=== PATIENT | male | born 1995 | race Asian ===

== ENCOUNTER 2025-04-04 14:33 | Emergency (ER) | payer OTHER, SELFPAY ==
[2025-04-04 15:11] VITALS: BP 131/59; PULSE 99; RESP 18; TEMP 39.4; O2SAT 99; BMI 30.5
--- NOTE | 2025-04-04 15:21 | EDNOTE_ITS ---
ED Fever RME/HPI General Chief Complaint: Fever Stated Complaint: Fever, sore throat X 2 days, fatigue Time Seen by Provider: 04/04/25 15:08 Arrival date/time: 04/04/25 14:33 This is a 30-year-old male comes into the emergency room with complaints of fever, sore throat, and fatigue for the past 2 days. Patient denies any past medical history. Patient is not from here and just came to visit family. Patient is going back to [place] tomorrow Related Data Previous Rx's ?Medication ?Instructions ?Recorded acetaminophen 500 mg tablet 1,000 mg (2 x 500 mg) PO Q ID PRN 04/04/25 fever or pain #30 tabs ibuprofen 800 mg tablet 800 mg PO Q6H PRN pain #20 t abs 04/04/25 Allergies Allergy/AdvReac Type Severity Reaction Status Date / Time No Known Drug Allergies Allergy Verified 04/04/25 14:37 Review of Systems Review of Systems Systems Reviewed: All systems reviewed, normal except as documented Past Medical History Past Medical History Comments PMH COMMENT: none reported Physical Exam Narrative Physical exam: VITAL SIGNS: Reviewed. GENERAL APPEARANCE: Alert and interactive, follows commands, no acute distress, HEAD AND FACE: Non-traumatic. ENT: PERRL, conjuctiva pink and clear, eyelid no trauma, Mucous membrane moist. posterior pharyx erythemic, tonsils swollen, uvula at midline NECK: Supple, nontender, no nuchal rigidity. CHEST: No tenderness, no crepitus, no paradoxical movement, no retractions. LUNGS: Clear, well ventilated, symmetric, no rales, no wheezing, no rhonchi, no stridor, good breath sounds bilaterally. HEART: Regular rate, regular rhythm, no murmur, no gallops. ABDOMEN: Soft, nondistended, no guarding, nontender, no rebound, no masses, NEUROLOGICAL: Gross motor function intact sensory function intact, Appropriate for age. MUSCULOSKELETAL: low back nontender, full range of motion. EXTREMITIES: No redness no swelling no skin breakdown on bilateral foot and leg. Distal neurovascular status intact bilateral foot SKIN: Color pink, dry, no rash, no lacerations, no abrasions, no contusions. Course Quality Measures none Orders Category Date Time Status Strep A Rapid Stat Lab 04/04/25 16:36 Completed Acetaminophen Tab [Tylenol ES Tab] Med 04/04/25 15:22 Discontinued 1,000 mg PO X1 ONE Dexamethasone Inj [Decadron Inj] Med 04/04/25 15:24 Discontinued 10 mg PO X1 ONE Ibuprofen Tab [Motrin Tab] Med 04/04/25 15:22 Discontinued 800 mg PO X1 ONE cefTRIAXone [Rocephin] 1,000 mg Med 04/04/25 15:24 Discontinued Lidocaine 1% 20 ml [Xylocaine 1% 20 ML] 2.1 ml IM X1 Vital Signs Vital signs: Vital Signs Temperature 103.0 F H 04/04/25 15:11 Pulse Rate 99 04/04/25 15:11 Respiratory Rate 18 04/04/25 15:11 Blood Pressure 131/59 H 04/04/25 15:11 Pulse Oximetry (%) 99 04/04/25 15:11 Oxygen Delivery Method Room Air 04/04/25 15:11 Fever MDM Narrative MDM Narrative:: I spoke to patient at length. His fever was very high he does have swelling to posterior pharynx bilateral tonsils swollen. Left greater than right. Today patient is treated with Rocephin, ibuprofen, Tylenol and a dose of Decadron. I will send patient home with Augmentin. I did talk to patient at length that with a fever that high we typically would order labs and I usually like to recheck patient's the next day. Patient states that he needs to travel tomorrow. at this time labs were not done. I spoke to patient and told him that if symptoms change or worsen to come back to the emergency room immediately immediately. I spoke to patient about the risk of this forming a peritonsillar abscess. patient verbalizes understanding. Prior to being discharged patient verbalized that he feels better and his fever did come down. Strep positive. Patient data External records reviewed:: [facility] previous records Clinical information provided by:: patient Social determinants that could affect healthcare access:: none Patient has the following chronic illnesses:: none How is presenting disease/condition affected by chronic disease/condition?: no chronic disease Evaluation data The following diagnostics were reviewed and interpreted by me:: lab results Lab and/or radiology exams considered but not ordered:: none Interpretation Summary: see note Medications / Prescriptions Medications or Prescriptions considered but not ordered:: none Medication administrations:: Medication Administration History Discontinued Medications Acetaminophen (Acetaminophen 500 Mg Tablet) 1,000 mg PO X1 ONE Stop: 04/04/25 15:23 Last Admin: 04/04/25 15:39 Dose: 1,000 mg Documented By: GABY Ceftriaxone Sodium 1,000 mg/ (Lidocaine HCl 2.1 ml) 0 mg IM X1 ONE Stop: 04/04/25 15:25 Last Admin: 04/04/25 15:40 Dose: 1,000 mg Documented By: GABY Comments: 2.1 ml lido Dexamethasone Sodium Phosphate (Dexamethasone Sod Phos Inj 10 Mg/Ml Vial) 10 mg PO X1 ONE Stop: 04/04/25 15:25 Last Admin: 04/04/25 15:40 Dose: 10 mg Documented By: GABY Ibuprofen (Ibuprofen Tab 400 Mg Tablet) 800 mg PO X1 ONE Stop: 04/04/25 15:23 Last Admin: 04/04/25 15:39 Dose: 800 mg Documented By: GABY see mar Consultations Consultation(s) initiated? (list below): No Diagnosis Fever Differential Diagnosis: cellulitis, fever of unknown origin, community acq uired pneumonia, viral infection, influenza and other (strep, peritonsilar abscss ) Most likely diagnosis given after review of the tests above:: strep throat Admission Indicated Admission indicated?: not indicated Admission Request Was there a request for admission?: No Disposition Plan Disposition Plan: Discharge Discharge Attestation Discharge Attestation: The patient and all family members were given an opportunity to ask questions and understood the discharge instructions. Discharge instructions specifically effects, indications for sooner follow up or return to the emergency department, and the expected course of current diagnosis. Patient condition: Stable Discharge Plan Plan Patient Disposition: HOME (Self Care) Patient condition on transfer: Stable Prescriptions/Referrals Prescriptions/Med Rec: New ibuprofen 800 mg tablet 800 mg PO Q6H PRN (Reason: pain) Qty: 20 0RF acetaminophen 500 mg tablet 1,000 mg PO QID PRN (Reason: fever or pain) Qty: 30 0RF Problem List Clinical Impression: Acute bacterial tonsillitis, Acute bacterial pharyngitis, Fever Patient/Caregiver Discharge Instructions Discharge Activity: activity as tolerated Education Materials: Tonsillitis in Adults, ED Fever Control (Child) Additional Instructions: Follow up with primary provider in 1-2 days. Come back to ED if symptoms change or worsen Print Language: Afghan Stand Alone Forms: Jazmyne Award Info., Patient Portal Info Letter PA/DISTILLERY WORKER Supervising Physician PA/DISTILLERY WORKER Supervising Physician: alan
[2025-04-04 15:39] VITALS: TEMP 39.4
[2025-04-04] MEDS: IBUPROFEN TAB 400 MG TABLET 800 MG PO (15:39)
[2025-04-04] MEDS: ACETAMINOPHEN 500 MG TABLET 1000 MG PO (15:39)
[2025-04-04] MEDS: cefTRIAXone 1,000 MG, LIDOCAINE 1% 20 ML 2.1 ML IM (15:40)
[2025-04-04] MEDS: DEXAMETHASONE SOD PHOS INJ 10 MG/ML VIAL PO (15:40)
[2025-04-04 16:38] VITALS: BP 116/74; PULSE 101; RESP 17; TEMP 37.9; O2SAT 96
[2025-04-04 16:40] VITALS: TEMP 37.9
[2025-04-04 16:45] VITALS: TEMP 37.9
[2025-04-04 17:17] LABS: Strep A Rapid Positive (Negative)
== END 2025-04-04 17:00 | disposition home or self-care (01) ==
PROVIDERS: Nurse Practitioner Family; Emergency Provider Emergency Medicine
DX: J02.8 Acute pharyngitis due to other specified organisms (principal); B96.89 Other specified bacterial agents as the cause of diseases classified elsewhere
CPT/HCPCS: 87651; 96372; 99283; J0696; J1100; J3490; A9270